=== PATIENT | male | born 1995 | race Caucasian/White ===

== ENCOUNTER 2024-05-27 11:56 | Emergency (ER) | payer SELFPAY ==
[~2024-05-27] VITALS: Ht 172.7 cm; Wt 134.0 kg
[2024-05-27 11:59] VITALS: TEMP 98.4; O2SAT 99
[2024-05-27 12:02] VITALS: O2SAT 98
[2024-05-27] MEDS ORDERED: AMOX-494 MT (13:05)
[2024-05-27 13:16] VITALS: BP 170/105; PULSE 80; RESP 16
[2024-05-27] MEDS: KETOROLAC 30MG/ML VIAL IM ONE (13:16)
[2024-05-27] MEDS ORDERED: BACITRACIN 14GM TUBE TOP ONE (13:30)
== END 2024-05-27 13:16 | disposition home or self-care (01) ==
LOC: ER 11:56
DX: J03.90 Acute tonsillitis, unspecified (principal)
CPT/HCPCS: 99283; 96372; J1885